=== PATIENT | female | born 1960 | race Native Hawaiian/Other Pacific Islander ===

== ENCOUNTER 2016-04-03 09:01 | Outpatient (CLI) | payer BC ==
[~2016-04-03 09:01] MED LIST: UNITH DIRECT150 MCG PO; VENLAFAXINE37.5 ER PO
[2016-04-03 09:17] LABS: PLATELET COUNT 222 K/uL (152-353)
== END 2016-04-03 19:08 | disposition home or self-care (01) ==
LOC: LABW 09:01
PROVIDERS: Dermatology
DX: Z79.899 Other long term (current) drug therapy (principal); Z51.81 Encounter for therapeutic drug level monitoring
CPT/HCPCS: 36415; 80076; 85027

== ENCOUNTER 2016-06-04 13:06 | Outpatient (CLI) | payer BC | END 2016-06-04 19:50 | disposition home or self-care (01) | LOC: LAB 13:06 | DX: N39.0 Urinary tract infection, site not specified (principal) | CPT/HCPCS: 87077; 87086; 87088; 87186 ==

== ENCOUNTER 2016-09-04 08:20 | Outpatient (CLI) | payer BC ==
[2016-09-04 09:27] LABS: PLATELET COUNT 206 K/uL (152-353)
== END 2016-09-04 19:04 | disposition home or self-care (01) ==
LOC: LABW 08:20
PROVIDERS: Dermatology
DX: Z79.899 Other long term (current) drug therapy (principal); Z51.81 Encounter for therapeutic drug level monitoring
CPT/HCPCS: 36415; 85027

== ENCOUNTER 2016-10-28 20:41 | Inpatient (IN) | payer BC ==
[~2016-10-28] VITALS: Ht 160 cm; Wt 99.9 kg
[2016-10-28 20:48] VITALS: BP 154/96; TEMP 100.2
[2016-10-28 21:00] VITALS: BP 151/93
[2016-10-28] MEDS ORDERED: MACROBID100 MG OR (21:05)
[2016-10-28 21:30] VITALS: BP 148/88
[2016-10-28 21:58] LABS: PLATELET COUNT 195 K/uL (152-353)
[2016-10-28 22:00] VITALS: BP 146/85; TEMP 99.7
[2016-10-29 00:26] VITALS: BP 118/60; TEMP 99.2; Ht 160 cm; Wt 99.9 kg
[2016-10-29 04:00] VITALS: BP 113/57; TEMP 98.6
[2016-10-29 08:00] VITALS: BP 167/50; TEMP 98.6
[2016-10-29] MEDS ORDERED: ONDA4TAB3 PO (09:50)
[2016-10-29 16:00] VITALS: BP 152/66; TEMP 99.7
[2016-10-29 20:34] VITALS: BP 122/65; TEMP 99.6
[2016-10-29 23:55] VITALS: BP 114/59; TEMP 98.6
[2016-10-30 03:55] LABS: PLATELET COUNT 155 K/uL (152-353)
[2016-10-30 04:00] VITALS: BP 128/53; TEMP 98.4
[2016-10-30 04:08] LABS: POTASSIUM 3.6 mmol/L (3.6-5.2); SODIUM 137 mmol/L (136-145)
[2016-10-30 08:00] VITALS: BP 128/53; TEMP 98.4
[2016-10-30 12:00] VITALS: BP 158/80; TEMP 98.8
[2016-10-30 16:00] VITALS: BP 129/78; TEMP 98.8
[2016-10-30 20:00] VITALS: BP 119/77; TEMP 98.9
[2016-10-31 00:25] VITALS: BP 124/81; TEMP 98.8
[2016-10-31 04:00] VITALS: BP 130/86; TEMP 98.8
[2016-10-31 04:04] LABS: PLATELET COUNT 176 K/uL (152-353)
[2016-10-31 04:22] LABS: POTASSIUM 3.6 mmol/L (3.6-5.2); SODIUM 138 mmol/L (136-145)
[2016-10-31 08:00] VITALS: BP 147/96; TEMP 98.4
[2016-10-31 12:12] VITALS: BP 123/62; TEMP 98.6
== END 2016-10-31 16:17 | disposition home or self-care (01) | DRG 690 ==
LOC: ED 20:41 → MED/SURG 22:55
PROVIDERS: Internal Medicine; ADMIT Emergency Medicine
DX: N10 Acute pyelonephritis (principal); E86.0 Dehydration; B96.20 Unspecified Escherichia coli [E. coli] as the cause of diseases classified elsewhere; Z16.11 Resistance to penicillins
CPT/HCPCS: 36415; 80048; 80053; 81000; 85027; 87077; 87086; 87088; 87186; 94760; 96365; 96366; 96372; 96374; 96375; J0696; J1650; J1885; J1956; J2175; J2405; J2550; S0028

== ENCOUNTER 2016-12-17 08:49 | Outpatient (CLI) | payer BC ==
[~2016-12-17 08:49] MED LIST changes: +MACROBID100 MG OR; +ONDA4TAB3 PO
== END 2016-12-17 09:50 | disposition home or self-care (01) ==
LOC: LABW 08:49
DX: Z01.812 Encounter for preprocedural laboratory examination (principal)
CPT/HCPCS: 36415; 84443

== ENCOUNTER 2018-09-01 11:46 | Outpatient (CLI) | payer BC | END 2018-09-01 20:13 | disposition home or self-care (01) | LOC: LAB 11:46 | DX: N30.90 Cystitis, unspecified without hematuria (principal) | CPT/HCPCS: 87077; 87086; 87088; 87185; 87186 ==

== ENCOUNTER 2018-12-30 15:02 | Outpatient (CLI) | payer BC | END 2018-12-30 21:48 | disposition home or self-care (01) | LOC: LAB 15:02 | DX: N39.0 Urinary tract infection, site not specified (principal) | CPT/HCPCS: 87077; 87086; 87088; 87185 ==

== ENCOUNTER 2019-07-12 13:56 | Outpatient (CLI) | payer BC | END 2019-07-12 20:58 | disposition home or self-care (01) | LOC: CT 13:56 | DX: R51 Headache (principal) ==